=== PATIENT | female | born 1960 | race Caucasian/White ===

== ENCOUNTER 2017-07-21 19:31 | Emergency (ER) | payer MEDICAID, MEDICARE, OTHER, SELFPAY ==
[~2017-07-21] VITALS: Ht 162.6 cm; Wt 56.8 kg
[2017-07-21] MEDS ORDERED: ESCI5TAB7 PO (20:30)
[2017-07-21] MEDS ORDERED: INSU100V8 SQ (20:30)
[2017-07-21] MEDS ORDERED: INSU100C SQ-INSULIN (20:30)
[2017-07-21] MEDS ORDERED: SEVE800T8 PO (20:30)
[2017-07-21] MEDS ORDERED: SODIUM CHLORIDE 0.9% 1,000ML IVBOLUS ONE (21:00)
[2017-07-21] MEDS ORDERED: SODIUM CHLORIDE FLUSH 10ML SYR IVF ONE (21:00)
[2017-07-21] MEDS ORDERED: MORPHINE SULFATE 4 MG/ML, 1ML IVPush PRN (21:00)
[2017-07-21] MEDS ORDERED: ONDANSETRON 2MG/ML, 2ML IVPush ONE (21:00)
[2017-07-21] MEDS ORDERED: ONDANSETRON 2MG/ML, 2ML ONE (21:04)
[2017-07-21] MEDS ORDERED: MORPHINE SULFATE 4 MG/ML, 1ML ONE (21:04)
[2017-07-21 21:16] LABS: HEMATOCRIT 34.4 % (34.6-47.8); HEMOGLOBIN 11.5 g/dL (11.7-16.4); WHITE BLOOD COUNT 10.2 x10^3/uL (3.4-10)
[2017-07-21 21:25] LABS: ASPARTATE AMINO TRANSFERASE 17 U/L (15-37); BLOOD UREA NITROGEN 34 mg/dL (7-18)
[2017-07-21] MEDS ORDERED: OMNIPAQUE 350 MG/ML, 100ML BOTTLE ONE (21:30)
[2017-07-21 21:58] VITALS: BP 95/44
== END 2017-07-21 23:44 ==
LOC: ED 23:30
DX: E11.22 Type 2 diabetes mellitus with diabetic chronic kidney disease (principal); I12.0 Hypertensive chronic kidney disease with stage 5 chronic kidney disease or end stage renal disease; N18.6 End stage renal disease; Z99.2 Dependence on renal dialysis; Z72.0 Tobacco use; Z79.4 Long term (current) use of insulin
CPT/HCPCS: 36415; 74177; 80053; 81001; 83690; 85025; 87086; 96361; 96374; 96375; 99285; J2405; J7030; Q9967

== ENCOUNTER 2017-07-22 18:08 | Inpatient (IN) | payer MEDICAID ==
[~2017-07-22] VITALS: Ht 162.6 cm; Wt 60.2 kg
[~2017-07-22 18:08] MED LIST: ESCI5TAB7 PO; INSU100C SQ-INSULIN; INSU100V8 SQ; SEVE800T8 PO
[2017-07-22 19:22] LABS: BLOOD UREA NITROGEN 59 mg/dL (7-18)
[2017-07-22 19:26] LABS: ASPARTATE AMINO TRANSFERASE 154 U/L (15-37)
[2017-07-22 19:37] LABS: WHITE BLOOD COUNT 8.5 x10^3/uL (3.4-10)
[2017-07-22] MEDS ORDERED: SODIUM CHLORIDE FLUSH 10ML SYR IVF ONE (22:00)
[2017-07-22] MEDS ORDERED: SODIUM CHLORIDE 0.9% 1,000ML IVBOLUS ONE (22:00)
[2017-07-22] MEDS: SODIUM CHLORIDE FLUSH 10ML SYR IVF SCH (22:30)
[2017-07-22] MEDS ORDERED: BISACODYL 10 MG SUPP PR PRN (22:30)
[2017-07-22] MEDS ORDERED: ONDANSETRON 2MG/ML, 2ML IVPush PRN (22:30)
[2017-07-22] MEDS ORDERED: morphine SULFATE 10 MG/ML, 1ML IVPush PRN (22:30)
[2017-07-22] MEDS ORDERED: ACETAMINOPHEN 325 MG TABLET PO PRN (22:30)
[2017-07-22] MEDS ORDERED: POLYETHYLENE GLYCOL 17 GM PACKET PO PRN (22:30)
[2017-07-22] MEDS ORDERED: CIPROFLOXACIN/PMX 400MG/200ML 200 ML ONE (22:41)
[2017-07-22] MEDS: CIPROFLOXACIN/PMX 400MG/200ML 200 ML IV SCH (22:46)
[2017-07-22 23:44] VITALS: BP 107/67
[2017-07-23] MEDS ORDERED: [UNRECOGNIZED DRUG - OTHER] PO (00:20)
[2017-07-23] MEDS: METRONIDAZOLE PMX 500MG/100ML 100 ML IV SCH ×3 (00:45→17:56)
[2017-07-23] MEDS: INSULIN DETEMIR 100 UNITS/ML, PEN SQ-INSULIN SCH ×2 (00:46→23:00)
[2017-07-23] MEDS: INSULIN REGULAR 100 UNITS/ML, 3ML VIAL SQ-INSULIN SCH ×5 (00:46→21:00)
[2017-07-23] MEDS: HEPARIN 5,000 UNITS/ML, 1ML SQ SCH ×3 (00:47→17:56)
[2017-07-23 03:59] VITALS: BP 107/67
[2017-07-23 05:14] LABS: HEMATOCRIT 25.7 % (34.6-47.8); HEMOGLOBIN 8.6 g/dL (11.7-16.4); WHITE BLOOD COUNT 6.8 x10^3/uL (3.4-10)
[2017-07-23 05:31] LABS: ASPARTATE AMINO TRANSFERASE 128 U/L (15-37); BLOOD UREA NITROGEN 66 mg/dL (7-18)
[2017-07-23 07:02] VITALS: BP 91/52
[2017-07-23] MEDS: SODIUM CHLORIDE FLUSH 10ML SYR IVF SCH ×2 (08:36→21:43)
[2017-07-23] MEDS: SENNA/DOCUSATE TABLET PO SCH (09:00)
[2017-07-23] MEDS ORDERED: FENTANYL 25 MCG PATCH TD SCH (10:00)
[2017-07-23] MEDS: SEVELAMER 800MG TABLET PO SCH (10:29)
[2017-07-23] MEDS: CITALOPRAM 10 MG TABLET PO SCH (10:30)
[2017-07-23 13:47] VITALS: BP 91/51
[2017-07-23 20:28] VITALS: BP 122/69
[2017-07-23] MEDS: CIPROFLOXACIN/PMX 400MG/200ML 200 ML IV SCH (22:44)
[2017-07-24] MEDS: METRONIDAZOLE PMX 500MG/100ML 100 ML IV SCH ×4 (01:11→18:25)
[2017-07-24] MEDS: HEPARIN 5,000 UNITS/ML, 1ML SQ SCH ×3 (01:15→16:30)
[2017-07-24 05:07] LABS: HEMATOCRIT 25.8 % (34.6-47.8); HEMOGLOBIN 8.6 g/dL (11.7-16.4); WHITE BLOOD COUNT 5.6 x10^3/uL (3.4-10)
[2017-07-24 05:12] VITALS: BP 112/59
[2017-07-24 05:13] LABS: BLOOD UREA NITROGEN 89 mg/dL (7-18)
[2017-07-24 05:17] LABS: ASPARTATE AMINO TRANSFERASE 81 U/L (15-37)
[2017-07-24] MEDS: INSULIN REGULAR 100 UNITS/ML, 3ML VIAL SQ-INSULIN SCH ×4 (07:00→18:25)
[2017-07-24 08:08] VITALS: BP 114/68
[2017-07-24] MEDS: SEVELAMER 800MG TABLET PO SCH (08:31)
[2017-07-24] MEDS: CITALOPRAM 10 MG TABLET PO SCH (08:33)
[2017-07-24] MEDS: SENNA/DOCUSATE TABLET PO SCH (08:34)
[2017-07-24] MEDS: SODIUM CHLORIDE FLUSH 10ML SYR IVF SCH (08:35)
[2017-07-24] MEDS ORDERED: METR500T PO (12:01)
[2017-07-24] MEDS ORDERED: CIPR250S2 PO (12:01)
[2017-07-24] MEDS ORDERED: FENT1PAT75 TD (12:01)
[2017-07-24 13:33] VITALS: BP 108/68
[2017-07-24 18:30] VITALS: BP 116/59
[2017-07-26] MEDS ORDERED: FENTANYL REMOVE PATCH NOTE XX SCH (10:30)
== END 2017-07-24 20:40 | disposition home or self-care (01) | DRG 441 ==
LOC: ED 20:57 → EDIP 21:35 → 4NOR 23:20
PROVIDERS: ADMIT Internal Medicine; ATTEND Internal Medicine
DX: B17.9 Acute viral hepatitis, unspecified (principal); N18.6 End stage renal disease; E11.22 Type 2 diabetes mellitus with diabetic chronic kidney disease; E44.0 Moderate protein-calorie malnutrition; I12.0 Hypertensive chronic kidney disease with stage 5 chronic kidney disease or end stage renal disease; E87.1 Hypo-osmolality and hyponatremia; K52.9 Noninfective gastroenteritis and colitis, unspecified; E11.65 Type 2 diabetes mellitus with hyperglycemia; D64.9 Anemia, unspecified; Z68.22 Body mass index [BMI] 22.0-22.9, adult; F17.210 Nicotine dependence, cigarettes, uncomplicated; K80.20 Calculus of gallbladder without cholecystitis without obstruction; Z79.4 Long term (current) use of insulin; Z99.2 Dependence on renal dialysis
CPT/HCPCS: 36415; 76700; 80053; 80074; 82378; 82962; 83036; 83690; 85025; 99285; J0744; J1644; J1815; J2270; J7030

== ENCOUNTER 2017-08-31 10:27 | Day surgery (SDC) | payer MEDICAID ==
[2017-08-30 09:52] LABS: HEMATOCRIT 34.7 % (34.6-47.8); HEMOGLOBIN 11.5 g/dL (11.7-16.4); WHITE BLOOD COUNT 4.7 x10^3/uL (3.4-10)
[2017-08-30 10:05] LABS: BLOOD UREA NITROGEN 45 mg/dL (7-18)
[2017-08-30 10:08] LABS: ASPARTATE AMINO TRANSFERASE 21 U/L (15-37)
[~2017-08-31] VITALS: Ht 162.6 cm; Wt 59.7 kg
[~2017-08-31 10:27] MED LIST changes: +CIPR250S2 PO; +FENT1PAT75 TD; +METR500T PO; +[UNRECOGNIZED DRUG - OTHER] PO
[2017-08-31] MEDS ORDERED: SODIUM CHLORIDE 0.9% 1,000 ML IV SCH (10:51)
[2017-08-31 10:52] VITALS: BP 127/76
[2017-08-31] MEDS ORDERED: DEXTROSE 50%, 50ML SYRINGE IVPush ONE (12:30)
[2017-08-31] MEDS ORDERED: MIDAZOLAM 1 MG/ML, 2ML ONE ×2 (12:41)
[2017-08-31] MEDS ORDERED: FENTANYL PF 100 MCG/2ML ONE ×2 (12:41)
[2017-08-31] MEDS ORDERED: PROPOFOL 10 MG/ML, 20ML ONE (12:51)
== END 2017-08-31 16:30 ==
LOC: OUT 10:27
PROVIDERS: ATTEND Internal Medicine
DX: K57.30 Diverticulosis of large intestine without perforation or abscess without bleeding (principal); K63.3 Ulcer of intestine; E11.22 Type 2 diabetes mellitus with diabetic chronic kidney disease; I12.0 Hypertensive chronic kidney disease with stage 5 chronic kidney disease or end stage renal disease; N18.6 End stage renal disease
CPT/HCPCS: 36415; 45380; 80053; 82962; 85025; 85610; 85730; 88305; 93005; J2250; J2704; J3010; J7030

== ENCOUNTER 2017-10-04 17:17 | Emergency (ER) | payer MEDICAID ==
[~2017-10-04] VITALS: Ht 160 cm; Wt 59.1 kg
[2017-10-04 17:21] VITALS: BP 123/82
[2017-10-04 18:02] LABS: RAPID INFLUENZA A Negative (Negative); RAPID INFLUENZA B Negative (Negative)
== END 2017-10-04 18:48 | disposition home or self-care (01) ==
LOC: ED 18:42
DX: J06.9 Acute upper respiratory infection, unspecified (principal); B34.9 Viral infection, unspecified; I10 Essential (primary) hypertension; E11.9 Type 2 diabetes mellitus without complications
CPT/HCPCS: 71020; 87400; 93005; 99285

== ENCOUNTER 2017-11-09 12:10 | Emergency (ER) | payer MEDICAID ==
[~2017-11-09] VITALS: Ht 162.6 cm; Wt 59.0 kg
[2017-11-09 12:38] VITALS: BP 109/60
== END 2017-11-09 13:26 | disposition home or self-care (01) ==
LOC: ED 13:20
DX: L03.312 Cellulitis of back [any part except buttock and flank] (principal); Z87.891 Personal history of nicotine dependence
CPT/HCPCS: 99283

== ENCOUNTER 2017-12-01 15:33 | Emergency (ER) | payer MEDICAID ==
[~2017-12-01] VITALS: Ht 162.6 cm; Wt 59.4 kg
[2017-12-01 16:48] LABS: BASOPHILS % (AUTO) 0 % (0-1); EOSINOPHILS # (AUTO) 0.09 x10^3/uL (0-0.4); EOSINOPHILS % (AUTO) 2 % (1-7); LYMPHOCYTES # (AUTO) 0.86 x10^3/uL (1-3.4); LYMPHOCYTES % (AUTO) 23 % (22-44); MD NO; MEAN CORPUSCULAR HEMOGLOBIN 31.3 pg (27.0-34.8); MEAN CORPUSCULAR HGB CONC 32.8 g/dL (32.4-35.8); MEAN CORPUSCULAR VOLUME 95.3 fL (80-100); MEAN PLATELET VOLUME 6.4 fL (7.4-10.4); MONOCYTES # (AUTO) 0.54 x10^3/uL (0.2-0.8); MONOCYTES % (AUTO) 14 % (2-9); NEUTROPHILS # (AUTO) 2.31 x10^3/uL (1.8-6.8); NEUTROPHILS % (AUTO) 61 % (42-75); PLATELET COUNT 246 x10^3/uL (130-400); RED BLOOD COUNT 3.66 x10^6/uL (3.82-5.3); RED CELL DISTRIBUTION WIDTH 14.6 % (9.6-15.2)
[2017-12-01 17:00] LABS: ALBUMIN 3.1 g/dL (3.4-5.0); ANION GAP 8 mmol/L (5-15); CALCIUM 8.4 mg/dL (8.5-10.1); CHLORIDE 97 mmol/L (98-107)
[2017-12-01 17:03] LABS: ALANINE AMINOTRANSFERASE 24 U/L (12-78); ALKALINE PHOSPHATASE 200 U/L (45-117); BILIRUBIN,TOTAL 0.4 mg/dL (0.2-1.0); CREATININE 3.94 mg/dL (0.55-1.02); TOTAL PROTEIN 6.8 g/dL (6.4-8.2)
[2017-12-01 18:07] VITALS: BP 112/63
== END 2017-12-01 20:02 | disposition home or self-care (01) ==
LOC: ED 19:02
DX: K21.0 Gastro-esophageal reflux disease with esophagitis (principal); D25.9 Leiomyoma of uterus, unspecified; R10.84 Generalized abdominal pain; I12.0 Hypertensive chronic kidney disease with stage 5 chronic kidney disease or end stage renal disease; N18.6 End stage renal disease; Z99.2 Dependence on renal dialysis; Z87.891 Personal history of nicotine dependence
CPT/HCPCS: 36415; 74176; 80053; 83690; 85025; 99285